=== PATIENT | female | born 1980 | race Caucasian/White ===

== ENCOUNTER 2017-07-18 10:47 | Day surgery (SDC) | payer OTHER ==
[2017-07-16 13:59] VITALS: BMI 28.0
[~2017-07-18 10:47] MED LIST: LACTATED RINGERS 1,000 ML IV SCH; LIDOCAINE 1% 20 ML VIAL (10MG/ML) FOR IV START INTRADERMA PRN
[2017-07-18 11:52] VITALS: RESP 16; TEMP 97
[2017-07-18] MEDS ORDERED: PROPOFOL 10 MG/ML 20 ML VIAL IV ONE (12:33)
[2017-07-18] MEDS ORDERED: LIDOCAINE 1% INJ 10MG/ML (20 ML MDV) ONE (12:33)
[2017-07-18] MEDS ORDERED: IV FLUID CONTINUATION 1,000 ML IV ONE (13:03)
[2017-07-18 13:18] VITALS: BP 121/73; PULSE 80
--- NOTE | 2017-07-18 13:42 | P.PCN ---
Date of Procedure: 07/18/17 Procedure(s) Performed: Procedure: Total colonoscopy. Preoperative diagnosis: Change in bowel habits. Postoperative diagnosis: Exam of the colon and terminal ileum within normal limits. Preparation: HalfLytely prep. Sedation: Was provided by anesthesia. Brief clinical history: The patient is a 56-year-old female who was evaluated in the office recently regarding abdominal pain and constipation. The patient has lost 6-8 lbs in 2 months. She reported intermittent rectal bleeding and abdominal bloating. She was evaluated in the emergency room at [facility] in May and a CT of the abdomen showed mild mural thickening involving the distal descending colon and proximal rectosigmoid colon with minimal pericolonic fat suggesting the possibility of colitis. There were a few scattered diverticula noted. Because of her symptoms. This evaluation is scheduled to assess for inflammatory bowel disease or other pathology. Procedure: With the patient on her left lateral decubitus position and after informed consent and adequate sedation, the perianal area was inspected and it did not show any fissures or fistulas. There were no masses felt on digital rectal examination. The Olympus CFQ 160L video colonoscope was then inserted in the rectum in the usual fashion and advanced to the cecum. I intubated the ileocecal valve and examined the terminal ileum. Terminal ileum and colon appeared healthy with no edema, erythema, friability, ulceration, exudation or spontaneous bleeding. No polyps or tumors were seen. There was a rare small diverticular orifice seen in the sigmoid. No strictures or any evidence of diverticulitis. I retroflexed the endoscope in the rectum before the endoscope was withdrawn. The patient tolerated the procedure well. Plan: The patient was reassured. Discussed dietary measures. Further plans can be made based on her course. Would keep you updated on her progress.
== END 2017-07-18 13:33 | disposition home or self-care (01) ==
LOC: ORWHC2ENDO 10:47
DX: K57.30 Diverticulosis of large intestine without perforation or abscess without bleeding (principal); K58.1 Irritable bowel syndrome with constipation; K62.5 Hemorrhage of anus and rectum; K21.9 Gastro-esophageal reflux disease without esophagitis
CPT/HCPCS: 45378; J2001; J2704

== ENCOUNTER → 2018-11-13 | Outpatient (CLI) | payer MEDICAID ==
--- NOTE | 2018-11-14 07:39 | US ---
EXAMINATION TYPE: US transvaginal DATE OF EXAM: 11/13/2018 COMPARISON: NONE CLINICAL HISTORY: R10.31 RLQ ABD PAIN,N83.20 PREV OVARIAN CYST. Right pelvic pain, back pain. History of ovarian cysts, tubal ligation TECHNIQUE: Transvaginal (TV). Patient requested TV rather than wait to fill bladder Date of LMP: 11/07/18 EXAM MEASUREMENTS: Uterus: 10.0 x 4.7 x 5.0 cm Endometrial Stripe: 0.8 cm Right Ovary: 3.0 x 1.7 x 2.7 cm Left Ovary: 3.2 x 1.9 x 2.0 cm 1. Uterus: Anteverted hypoechoic area anterior ARTEM, probable fibroid = 1.9 x 1.5 x 1.8cm 2. Endometrium: appears wnl 3. Right Ovary: cystic areas noted, largest = 2.1 x 1.4 x 2.0cm 4. Left Ovary: follicles noted 5. Bilateral Adnexa: appears wnl 6. Posterior cul-de-sac: wnl IMPRESSION: Fibroid uterus. Right-sided ovarian cysts.
== END | disposition home or self-care (01) ==
LOC: RADUSWWP 16:09
PROVIDERS: ATTEND Obstetrics & Gynecology Obstetrics
DX: D25.9 Leiomyoma of uterus, unspecified (principal); N83.201 Unspecified ovarian cyst, right side
CPT/HCPCS: 76830